=== PATIENT | male | born 1975 | race Two or more races ===

== ENCOUNTER 2018-11-07 12:20 | Emergency (ER) | payer OTHER ==
[~2018-11-07] VITALS: Ht 170.2 cm; Wt 111.1 kg
--- NOTE | 2018-11-07 12:25 | NUR ---
BIB SELF 43 YEAR OLD MALE C/O WORSENING RECTAL PAIN, STS, HE HAS HEMORRHOID. ALERT AND OREINTED X4 BREATHING EVEN AND UNLABORED WITH NO DISTRESS NOTED. RECTAL PAIN PRESENT 08/08. SKIN INTACT. WAITING TO SEEN BY MD.
--- NOTE | 2018-11-07 12:52 | NUR ---
CALLED DR.SAM JO, TRANSFERRED CALL TO [facility]
[2018-11-07] MEDS ORDERED: IV NS 0.9% 1,000 ML BAG IV ONE (13:00)
--- NOTE | 2018-11-07 13:00 | NUR ---
PATIENT REFUSES IVF.
[2018-11-07 13:01] LABS: BASOPHILS % (AUTO) 0.3 % (0.0-2.0); EOSINOPHILS % (AUTO) 0.4 % (0.0-6.0); HEMATOCRIT 45 % (39-51); HEMOGLOBIN 15.4 g/dL (13.5-17.5); LYMPHOCYTES # (AUTO) 1.6 /CMM (0.8-4.8); LYMPHOCYTES % (AUTO) 15.6 % (20.0-44.0); MEAN CORPUSCULAR HGB CONC 34 g/dl (31.0-36.0); MEAN CORPUSCULAR VOLUME 95 fL (80-96); MONOCYTES # (AUTO) 0.5 /CMM (0.1-1.30); MONOCYTES % (AUTO) 5.1 % (2.0-12.0); NEUTROPHILS # (AUTO) 8.3 /CMM (1.8-8.9); NEUTROPHILS % (AUTO) 78.6 % (43.0-81.0); PLATELET COUNT (AUTO) 280 /CMM (150-450); RED BLOOD CELL COUNT(AUTO) 4.73 MIL/uL (4.5-6.0); WHITE BLOOD COUNT (AUTO) 10.6 K/uL (4.3-11.0)
[2018-11-07 13:11] LABS: CALCIUM, SERUM 9.2 mg/dL (8.5-10.1); CREATININE 0.9 mg/dL (0.6-1.3); POTASSIUM 3.9 mmol/L (3.5-5.1)
[2018-11-07 13:20] LABS: ALBUMIN 3.5 g/dL (3.4-5.0); BILIRUBIN,DIRECT 0.1 mg/dL (0.0-0.2); BILIRUBIN,TOTAL 0.4 mg/dL (0.2-1.0); TOTAL PROTEIN, SERUM 7.6 g/dL (6.4-8.2)
--- NOTE | 2018-11-07 13:51 | NUR ---
CALLED DR. ALESSANDRO JO, LEFT MESSAGE ON VOICEMAIL.
--- NOTE | 2018-11-07 14:50 | NUR ---
DR JO AT BEDSIDE
[2018-11-07 15:09] VITALS: BP 140/75
--- NOTE | 2018-11-07 15:09 | NUR ---
Patient discharged to home in stable condition. Written and verbal after care instructions given. Patient verbalizes understanding of instruction.
== END 2018-11-07 15:10 | disposition home or self-care (01) ==
LOC: ER 12:29
DX: K60.2 Anal fissure, unspecified (principal); K64.8 Other hemorrhoids; K62.5 Hemorrhage of anus and rectum; E78.00 Pure hypercholesterolemia, unspecified; F17.200 Nicotine dependence, unspecified, uncomplicated
CPT/HCPCS: 36415; 80048-TC; 80076-TC; 82272-TC; 85025-TC; 85730-TC; J7030